=== PATIENT | male | born 1940 | race Asian ===

== ENCOUNTER → 2016-09-03 | Outpatient (CLI) | payer MEDICARE, BC ==
--- NOTE | 2016-09-04 00:34 | HKNOTE ---
DATE OF SERVICE: 09/03/2016 The patient "dropped in for a cortisone shot" in both knees. The patient has severe degenerative osteoarthritis of both knees. The cortisone injections have bee n helping him all along, and he is not ready to consider knee replacement surgery. Clinically, the patient's knees are severely arthritic with limitation of flexion and extension. No imaging obtained today. MANAGEMENT: Under sterile conditions, given injection of Monovisc with prior numbing with 2% lidoca ine. Injection was given into both knees. He will be seen again as necessary. Dictated By: ASCENCION BIRCH/NTS Conf#: [id number] DID#: [id number]
== END | disposition home or self-care (01) ==
LOC: HKI 16:47
DX: M17.0 Bilateral primary osteoarthritis of knee (principal)

== ENCOUNTER → 2017-08-16 | Outpatient (CLI) | END | disposition home or self-care (01) ==